=== PATIENT | male | born 1950 | race Caucasian/White ===

== ENCOUNTER 2020-12-24 12:32 | Inpatient (IN) | payer MEDICARE ==
[~2020-12-24] VITALS: Ht 172.7 cm; Wt 118.5 kg
--- NOTE | 2020-12-24 13:12 | NUR ---
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
--- NOTE | 2020-12-24 13:17 | NUR ---
PT HERE WITH C/O LEFT KNEE AND HIP PAIN, PT STATES HE SLIPPED ON ICE AND HYPEREXTENDED LEFT LEG. PT PLACED ON VITALS MONITORS. CALL LIGHT WITHIN REACH.
--- NOTE | 2020-12-24 13:23 | NUR ---
PT TO XRAY.
[2020-12-24] MEDS ORDERED: ONDANSETRON 2MG/ML, 2ML IVPush ONE (14:00)
[2020-12-24] MEDS ORDERED: MORPHINE SULFATE 4 MG/ML, 1ML ONE ×3 (14:03→17:40)
[2020-12-24] MEDS ORDERED: ONDANSETRON 2MG/ML, 2ML ONE (14:04)
[2020-12-24] MEDS: MORPHINE SULFATE 4 MG/ML, 1ML IVPush PRN ×2 (14:12→14:42)
[2020-12-24 14:48] LABS: BASOPHILS % (AUTO) 1 % (0-1); EOSINOPHILS % (AUTO) 1 % (1-7); LYMPHOCYTES % (AUTO) 16 % (22-44); MD NO; MEAN CORPUSCULAR HEMOGLOBIN 30.7 pg (27.5-34.5); MEAN CORPUSCULAR HGB CONC 33.8 g/dL (33.2-36.2); MONOCYTES % (AUTO) 6 % (2-9); NEUTROPHILS % (AUTO) 76 % (42-75); PLATELET COUNT 185 x10^3/uL (130-400); RED BLOOD COUNT 4.54 x10^6/uL (4.38-5.82); RED CELL DISTRIBUTION WIDTH 14.3 % (9.4-14.8)
--- NOTE | 2020-12-24 14:50 | NUR ---
PT BACK IN XRAY FOR HIP IMAGING.
[2020-12-24 14:56] LABS: ALBUMIN 3.7 g/dL (3.4-5.0); CALCIUM 8.9 mg/dL (8.5-10.1); CREATININE 1.22 mg/dL (0.7-1.3)
[2020-12-24 15:20] LABS: ANION GAP 3 mmol/L (5-15)
[2020-12-24] MEDS ORDERED: ASPI-515 PO (15:20)
[2020-12-24] MEDS ORDERED: MONT10TA6 PO (15:20)
[2020-12-24] MEDS ORDERED: ATOR20TA37 PO (15:20)
[2020-12-24] MEDS ORDERED: TAMS-11 PO (15:20)
[2020-12-24] MEDS ORDERED: GABA600T7 PO (15:20)
[2020-12-24 15:21] LABS: CHLORIDE 112 mmol/L (98-107)
[2020-12-24] MEDS ORDERED: LISI40TA PO (15:21)
[2020-12-24] MEDS ORDERED: ESCI10TA5 PO (15:22)
[2020-12-24] MEDS ORDERED: FEXO1TAB29 PO (15:23)
[2020-12-24] MEDS ORDERED: morphine SULFATE 10 MG/ML, 1ML IVPush ONE (18:00)
[2020-12-24] MEDS ORDERED: MORPHINE SULFATE 4 MG/ML, 1ML IVPush ONE (18:00)
[2020-12-24] MEDS: SODIUM CHLORIDE 0.9% 1,000 ML IV SCH (18:27)
[2020-12-24] MEDS ORDERED: ACETAMINOPHEN 325 MG TABLET PO PRN (18:30)
[2020-12-24] MEDS ORDERED: DOCUSATE 100 MG CAPSULE PO PRN (18:30)
[2020-12-24] MEDS ORDERED: ONDANSETRON 2MG/ML, 2ML IVPush PRN (18:30)
[2020-12-24] MEDS ORDERED: MELATONIN 3 MG TABLET PO PRN (18:30)
[2020-12-24 20:53] VITALS: BP 128/71
[2020-12-24] MEDS ORDERED: metoprolol PO (21:02)
[2020-12-24] MEDS: ATORVASTATIN 20 MG TABLET PO SCH (21:08)
[2020-12-24] MEDS: GABAPENTIN 300 MG CAPSULE PO SCH (21:08)
[2020-12-24] MEDS: OXYcodone/APAP 5/325MG TABLET PO PRN (21:11)
[2020-12-24 22:30] VITALS: BP 128/66
[2020-12-24] MEDS: morphine SULFATE 10 MG/ML, 1ML IVPush PRN (23:18)
[2020-12-24] MEDS: TAMSULOSIN 0.4 MG CAP.ER.24H PO SCH (23:19)
[2020-12-25 01:00] VITALS: BP 136/73
[2020-12-25] MEDS: morphine SULFATE 10 MG/ML, 1ML IVPush PRN (03:22)
[2020-12-25 05:24] LABS: BASOPHILS % (AUTO) 1 % (0-1); EOSINOPHILS % (AUTO) 3 % (1-7); LYMPHOCYTES % (AUTO) 27 % (22-44); MEAN CORPUSCULAR HEMOGLOBIN 30.5 pg (27.5-34.5); MEAN CORPUSCULAR HGB CONC 33.6 g/dL (33.2-36.2); MEAN PLATELET VOLUME 8.2 fL (7.4-10.4); MONOCYTES % (AUTO) 9 % (2-9); NEUTROPHILS % (AUTO) 60 % (42-75); PLATELET COUNT 158 x10^3/uL (130-400); RED BLOOD COUNT 4.11 x10^6/uL (4.38-5.82); RED CELL DISTRIBUTION WIDTH 14.3 % (9.4-14.8)
[2020-12-25 05:25] LABS: MD NO
[2020-12-25 05:45] LABS: ANION GAP 4 mmol/L (5-15); CALCIUM 8.1 mg/dL (8.5-10.1); CHLORIDE 112 mmol/L (98-107); CREATININE 1.23 mg/dL (0.7-1.3)
[2020-12-25 07:31] VITALS: BP 135/75
[2020-12-25] MEDS: SODIUM CHLORIDE 0.9% 1,000 ML IV SCH (07:50)
[2020-12-25] MEDS ORDERED: TAMSULOSIN 0.4 MG CAP.ER.24H PO SCH (09:00)
[2020-12-25] MEDS: ENOXAPARIN 40 MG/0.4 ML SQ SCH (09:00)
[2020-12-25] MEDS: GABAPENTIN 300 MG CAPSULE PO SCH ×2 (09:55→20:11)
[2020-12-25] MEDS: ESCITALOPRAM 10MG TABLET PO SCH (09:56)
[2020-12-25] MEDS: LISINOPRIL 40 MG TABLET PO SCH (09:56)
[2020-12-25] MEDS: OXYcodone/APAP 5/325MG TABLET PO PRN ×3 (09:56→23:19)
[2020-12-25 14:58] VITALS: BP 114/67
[2020-12-25 20:00] VITALS: BP 130/64
[2020-12-25] MEDS: TAMSULOSIN 0.4 MG CAP.ER.24H PO SCH (20:10)
[2020-12-25] MEDS: ATORVASTATIN 20 MG TABLET PO SCH (20:11)
[2020-12-26 01:40] VITALS: BP 140/81
[2020-12-26 06:28] VITALS: BP 162/77
[2020-12-26] MEDS: ESCITALOPRAM 10MG TABLET PO SCH (09:06)
[2020-12-26] MEDS: LISINOPRIL 40 MG TABLET PO SCH (09:06)
[2020-12-26] MEDS: GABAPENTIN 300 MG CAPSULE PO SCH ×2 (09:06→20:38)
[2020-12-26] MEDS: OXYcodone/APAP 5/325MG TABLET PO PRN ×4 (09:07→20:40)
[2020-12-26] MEDS: ENOXAPARIN 40 MG/0.4 ML SQ SCH (09:10)
[2020-12-26 13:35] VITALS: BP 124/64
[2020-12-26 18:59] VITALS: BP 137/73
[2020-12-26] MEDS: TAMSULOSIN 0.4 MG CAP.ER.24H PO SCH (20:38)
[2020-12-26] MEDS: ATORVASTATIN 20 MG TABLET PO SCH (20:39)
[2020-12-27 02:00] VITALS: BP 135/86
[2020-12-27] MEDS: OXYcodone/APAP 5/325MG TABLET PO PRN ×3 (02:55→19:43)
[2020-12-27 07:10] VITALS: BP 168/79
[2020-12-27] MEDS: ENOXAPARIN 40 MG/0.4 ML SQ SCH (08:52)
[2020-12-27] MEDS: ESCITALOPRAM 10MG TABLET PO SCH (08:53)
[2020-12-27] MEDS: LISINOPRIL 40 MG TABLET PO SCH (08:54)
[2020-12-27] MEDS: GABAPENTIN 300 MG CAPSULE PO SCH ×2 (08:54→19:43)
[2020-12-27 12:10] VITALS: BP 127/80
[2020-12-27] MEDS: morphine SULFATE 10 MG/ML, 1ML IVPush PRN (13:49)
[2020-12-27] MEDS ORDERED: ASPI-515 PO (17:33)
[2020-12-27] MEDS ORDERED: OXYC1TAB14 PO (17:33)
[2020-12-27 18:55] VITALS: BP 140/89
[2020-12-27] MEDS: ATORVASTATIN 20 MG TABLET PO SCH (19:43)
[2020-12-27] MEDS: TAMSULOSIN 0.4 MG CAP.ER.24H PO SCH (19:43)
[2020-12-28 02:31] VITALS: BP 132/79
[2020-12-28] MEDS: OXYcodone/APAP 5/325MG TABLET PO PRN ×2 (05:51→12:36)
[2020-12-28 06:19] VITALS: BP 165/85
[2020-12-28] MEDS ORDERED: AMLO-211 PO (08:11)
[2020-12-28] MEDS ORDERED: AMLODIPINE 5 MG TABLET PO ONE (08:30)
[2020-12-28] MEDS: ENOXAPARIN 40 MG/0.4 ML SQ SCH (09:00)
[2020-12-28] MEDS: ESCITALOPRAM 10MG TABLET PO SCH (09:35)
[2020-12-28] MEDS: GABAPENTIN 300 MG CAPSULE PO SCH (09:35)
[2020-12-28] MEDS: LISINOPRIL 40 MG TABLET PO SCH (09:35)
== END 2020-12-28 13:41 | disposition home health service (06) | DRG 534 ==
LOC: ED 15:12 → EDIP 16:34 → 4NE 17:51 → 4WST 18:04
PROVIDERS: ADMIT Hospitalist; ATTEND Hospitalist
DX: S72.402A Unspecified fracture of lower end of left femur, initial encounter for closed fracture (principal); I50.22 Chronic systolic (congestive) heart failure; I11.0 Hypertensive heart disease with heart failure; G62.9 Polyneuropathy, unspecified; E78.5 Hyperlipidemia, unspecified; I34.0 Nonrheumatic mitral (valve) insufficiency; Z20.822 Contact with and (suspected) exposure to COVID-19; E66.9 Obesity, unspecified; Z68.39 Body mass index [BMI] 39.0-39.9, adult; I77.819 Aortic ectasia, unspecified site; K59.03 Drug induced constipation; N40.0 Benign prostatic hyperplasia without lower urinary tract symptoms; T40.605A Adverse effect of unspecified narcotics, initial encounter; W18.39XA Other fall on same level, initial encounter; Y93.89 Activity, other specified; Y92.89 Other specified places as the place of occurrence of the external cause; Y99.8 Other external cause status; Z96.653 Presence of artificial knee joint, bilateral
CPT/HCPCS: 36415; 71045; 80048; 82040; 85025; 87635; 93005; 93306; 96374; 96375; 96376; 99285; G0378; J1650; J2405; J2270; J7030

== ENCOUNTER 2021-05-08 07:34 | Outpatient (CLI) | payer MEDICARE ==
[~2021-05-08 07:34] MED LIST: AMLO-211 PO; ASPI-963 PO; ATOR20TA37 PO; ESCI10TA97 PO; FEXO1TAB29 PO; GABA600T7 PO; LISI40TA9 PO; MONT10TA6 PO; OXYC1TAB14 PO; TAMS-11 PO; metoprolol PO
[2021-05-08 08:13] LABS: CREATININE 1.28 mg/dL (0.7-1.3)
[2021-05-08] MEDS ORDERED: OMNIPAQUE 350 MG/ML, 100ML BOTTLE ONE (08:47)
== END 2021-05-08 23:59 | disposition home or self-care (01) ==
LOC: RAD 07:34
PROVIDERS: ATTEND Internal Medicine Cardiovascular Disease
DX: R91.8 Other nonspecific abnormal finding of lung field (principal); I51.7 Cardiomegaly; I77.810 Thoracic aortic ectasia
CPT/HCPCS: 36415; 71275; 82565; Q9967